=== PATIENT | female | born 1955 | race Caucasian/White ===

== ENCOUNTER → 2020-11-26 15:39 | Outpatient (CLI) | payer OTHER, SELFPAY ==
--- NOTE | ~2020-11-26 | XR_ITS ---
[id number] 11/26/2020 15:59 Indication: Neck pain Procedure: 4 views of the cervical spine Comparison: 12/10/2013 Findings: Straightening of cervical lordosis. Vertebral body and disc heights are preserved. There is moderate multilevel facet hypertrophy. Lung apices are normal. Odontoid process within normal limits . Impression: 1: Moderate spondylosis primarily involving the facet joints. Reviewed, dictated and finalized at location A. Impression: 1: Moderate spondylosis primarily involving the facet joints.
== END ==
PROVIDERS: PCP Physician Assistant; Visit Provider Physician Assistant
DX: M47.892 Other spondylosis, cervical region (principal)
CPT/HCPCS: 72040